=== PATIENT | female | born 1965 | race Caucasian/White ===

== ENCOUNTER 2016-12-26 13:33 | Outpatient (CLI) | payer OTHER ==
[2016-12-26 14:22] LABS: ALT (SGPT) 17 U/L (0-55); AST (SGOT) 15 U/L (5-34); Albumin 3.7 g/dL (3.5-5.0); Alkaline Phosphatase 50 U/L (40-150); Anion Gap 14 mmol/L (10-20); BUN (Urea Nitrogen) 20 mg/dL (7.0-18.7); Bilirubin, Total 0.6 mg/dL (0.2-1.2); Calc. Creatinine Clearance 0 mL/min (70-130); Calcium 8.5 mg/dL (7.8-10.44); Carbon Dioxide 22 mmol/L (22-29); Cardiac Risk 3.5 (Less than 4.5); Chloride 108 mmol/L (98-107); Cholesterol 130 mg/dL (< 200 Desired); Estimated GFR-MDRD 87; Globulin 2.1 g/dL (2.4-3.5); Glucose 101 mg/dL (70-105); HDL Cholesterol 37 mg/dL (>60 Neg Risk); LDL Cholesterol, Calculated 80 mg/dL; Protein, Total 5.8 g/dL (6.0-8.3); Sodium 139 mmol/L (136-145); Triglycerides 67 mg/dL (Less than 150)
== END 2016-12-26 13:34 | disposition home or self-care (01) ==
LOC: NAV LAB 13:33
PROVIDERS: ATTEND Internal Medicine Cardiovascular Disease
DX: I21.4 Non-ST elevation (NSTEMI) myocardial infarction (principal)
CPT/HCPCS: 80053; 80061